=== PATIENT | male | born 1995 | race Caucasian/White ===

== ENCOUNTER 2020-01-23 00:49 | Emergency (ER) | payer OTHER ==
[~2020-01-23] VITALS: Ht 177.8 cm; Wt 81.6 kg
--- NOTE | 2020-01-23 01:15 | NUR ---
Dr Rios at bedside for MSE.
--- NOTE | 2020-01-23 01:20 | NUR ---
Pt down for CT.
[2020-01-23] MEDS ORDERED: OXYCODONE/APAP 5-325 MG TABLET PO ONE (01:30)
[2020-01-23] MEDS ORDERED: ONDANSETRON ODT 4 MG TAB.RAPDIS SL ONE (01:30)
[2020-01-23] MEDS ORDERED: CYCLOBENZAPRINE HCL 10 MG TABLET PO ONE (01:30)
[2020-01-23] MEDS ORDERED: ONDANSETRON ODT 4 MG TAB.RAPDIS ONE (01:31)
[2020-01-23] MEDS ORDERED: CYCLOBENZAPRINE HCL 10 MG TABLET ONE (01:31)
[2020-01-23] MEDS ORDERED: OXYCODONE/APAP 5-325 MG TABLET ONE (01:32)
[2020-01-23] MEDS ORDERED: LORAZEPAM 0.5 MG TABLET PO ONE (02:00)
[2020-01-23] MEDS ORDERED: LORAZEPAM 1 MG TABLET ONE (02:03)
--- NOTE | 2020-01-23 02:41 | NUR ---
[employer] at bedside
--- NOTE | 2020-01-23 02:53 | NUR ---
Called [employer] for a taxi voucher.
[2020-01-23 03:26] VITALS: BP 108/79
--- NOTE | 2020-01-23 03:30 | NUR ---
Patient discharged to home in stable conditon. Written and verbal after care instructions given. Patient verbalizes understanding of instructions.
--- NOTE | 2020-01-23 03:40 | NUR ---
Received Taxi voucher. Pt in waiting room for ride. ETA 10 - 15 minutes.
--- NOTE | 2020-01-23 03:50 | NUR ---
Taxi arrived on site. Pt ambulated out with steady gait. No acute distress noted. All belongings with patient.
== END 2020-01-23 03:51 | disposition home or self-care (01) ==
LOC: ER 00:52
DX: S16.1XXA Strain of muscle, fascia and tendon at neck level, initial encounter (principal); F41.9 Anxiety disorder, unspecified; M25.512 Pain in left shoulder; Z88.2 Allergy status to sulfonamides; Z79.899 Other long term (current) drug therapy; V49.9XXA Car occupant (driver) (passenger) injured in unspecified traffic accident, initial encounter; Y93.89 Activity, other specified; Y92.89 Other specified places as the place of occurrence of the external cause; Y99.8 Other external cause status
CPT/HCPCS: 72125; 73030; A4663; Q0162